=== PATIENT | male | born 1980 | race Two or more races ===

== ENCOUNTER 2017-05-01 10:41 | Emergency (ER) | payer OTHER, SELFPAY ==
[2017-05-01 10:43] VITALS: BP 159/100; PULSE 72; RESP 18; TEMP 36.3; O2SAT 99; BMI 33.5
--- NOTE | 2017-05-01 10:51 | CT_ITS ---
CT facial bones wo con COMPARISON: None HISTORY: Hit head on dresser last night now having headaches with some nausea and vomiting TECHNIQUE: Multiple axial scans of the maxillofacial bones and paranasal sinuses were obtained. Sagittal and coronal reformats were evaluated as well. FINDINGS: The mandible is intact and the zygomatic arches appear intact. The orbital rims and orbital floors appear intact. There is moderate mucoperiosteal thickening of the maxillary sinuses right side slightly worse than left. There is occlusion of the ostia of the O MU bilaterally secondary to inflammatory changes which involve the ethmoid sinuses. There is mucoperiosteal thickening of the frontal sinuses as well, sphenoid sinuses clear. There is mild bowing nasal septum from left to right. The nasal bone is intact. IMPRESSION: Findings of prominent chronic bilateral maxillary ethmoid and frontal sinusitis, no facial bone fracture identified
--- NOTE | 2017-05-01 10:51 | CT_ITS ---
CT head/brain wo con COMPARISON: None HISTORY: Hit head on dresser last night now complaining of headache TECHNIQUE: Multiple axial scans obtained from base skull to the vertex and were performed without IV contrast. FINDINGS: There is prominent mucoperiosteal thickening of the maxillary sinuses right side greater than left. There are inflammatory changes of the ethmoid sinuses. The mastoids are clear. The frontals and sphenoid sinus are clear. The ventricular system is normal. Is no ischemic infarct or bleed and there are no extra-axial fluid collections. The bony calvarium appears intact. IMPRESSION: Inflammatory changes of the maxillary sinuses and ethmoid sinuses likely chronic, otherwise essentially negative noncontrast CT scan of brain
--- NOTE | 2017-05-01 12:53 | HMH.EDGENADL ---
ED Disposition Clinical Impression: Head contusion, Migraine, Sinusitis Disposition: Home, Self-Care Condition on Discharge: Fair Instructions: Sinusitis Additional Instructions: 1- head inj instructions, and return for any changes 2- HOB 30 degree. 3- cold compresses 4- start augmentin 500 mg po bid x 2 weeks. 5- see dr kaiser Prescriptions: Amoxicillin [Amoxicillin 500mg Cap] 500 mg PO TID #30 cap Referrals: Anirudh Kaiser MD [Staff Physician] - - Critical Care Critical Care Time: No Attestation: On 05/01/17, the high probability of a clinically significant, sudden or life threatening deterioration of the following system(s) required my full and direct attention, intervention and personal management. The time I documented below is in addition to time spent performing reported procedures but includes the following listed in this critical care notation. Medical Decision Making - Dominguez Inquiry Pt receiving controlled substance: No Dominguez was queried for this patient: No Vital Signs: 05/01/17 10:43 Temperature 97.4 F L Temperature Source Oral Pulse Rate [Right Brachial] 72 Respiratory Rate 18 Blood Pressure [Right Arm] 159/100 Blood Pressure Mean [Right Arm] 119 Blood Pressure Source [Right Arm] Automatic Cuff Blood Pressure Position [Right Arm] Sitting 02 Sat by Pulse Oximetry 99 Oxygen Delivery Method Room Air - CT Data CT Scan: Head, Other Time Received: 12:[address] Reviewed: Yes: I have viewed the radiologist's interpretation Preliminary Findings: Abnormal Findings Narrative: IMPRESSION: Findings of prominent chronic bilateral maxillary ethmoid and frontal sinusitis, no facial bone fracture identified Medical Decision Narrative: I discussed with the patient his normal neurological and visual examination. Did have a negative CT scan except for sinusitis. Advising for antibiotics and a follow-up with the sinus doctor Dr. Kaiser. May help his migraine. He will receive a head injury instruction and he is to return for any new symptoms. The parents on the bedside verbalized understanding. General Adult HPI - General Chief complaint: PAIN Stated complaint: AO 04/30/17 hit head bad trujillo Time Seen by Provider: 05/01/17 13:00 Mode of Arrival: Ambulatory Limitations: No Limitations Description of Symptoms (Recalled from ER Triage Doc. by RN): Pt reports bend down and hit his head on his dresser, pt reports having pain in R eye area, feels like pressure in his head and has vomitted. - History of Present Illness HPI narrative: 36 years old male with a history of migraine. yesterday at 10:30 AM, he accidentally hit his head on a dresser, he denies alcohol use. He woke up this morning with a right sided headache followed by vomiting ?1. He took Excedrin migraine and was brought to the ED by his family. They agree with the story. Denies having neck pain chest pain abdominal pain or other extremity pain. He denies having visual disturbance. Onset (ago): hour(s) (10 hours) Location: head (Right supra frontal region. ) Radiation: non-radiation Severity: mild Severity scale (1-10): 1 Quality: dull Consistency: constant Relieving factors: medication Exacerbating factors: none Associated symptoms: nausea/vomiting Treatments prior to arrival: none - Related Data Previous Rx's Medication Instructions Recorded Amoxicillin [Amoxicillin 500mg 500 mg PO TID #30 cap 05/01/17 Cap] Allergies Allergy/AdvReac Type Severity Reaction Status Date / Time No Known Allergies Allergy Verified 05/01/17 10:50 [facility] History I have reviewed the patient's past medical history: Yes Medical History: Denies:: Diabetes Mellitus Type 1, Diabetes Mellitus Type 2 Amputation: No - Social History Alcohol Intake: never - Psychiatric History Expresses thoughts of harming self/others: None Suicide Plan Description: No Plan ROS Obtained: Yes All systems review
--- NOTE | 2017-05-01 12:56 | ED_ITS ---
ED Disposition Clinical Impression: Head contusion, Migraine, Sinusitis Disposition: Home, Self-Care Condition on Discharge: Fair Instructions: Sinusitis Additional Instructions: 1- head inj instructions, and return for any changes 2- HOB 30 degree. 3- cold compresses 4- start augmentin 500 mg po bid x 2 weeks. 5- see dr kaiser Prescriptions: Amoxicillin [Amoxicillin 500mg Cap] 500 mg PO TID #30 cap Referrals: Anirudh Kaiser MD [Staff Physician] - - Critical Care Critical Care Time: No Attestation: On 05/01/17, the high probability of a clinically significant, sudden or life threatening deterioration of the following system(s) required my full and direct attention, intervention and personal management. The time I documented below is in addition to time spent performing reported procedures but includes the following listed in this critical care notation. Medical Decision Making - Dominguez Inquiry Pt receiving controlled substance: No Dominguez was queried for this patient: No Vital Signs: 05/01/17 10:43 Temperature 97.4 F L Temperature Source Oral Pulse Rate [Right Brachial] 72 Respiratory Rate 18 Blood Pressure [Right Arm] 159/100 Blood Pressure Mean [Right Arm] 119 Blood Pressure Source [Right Arm] Automatic Cuff Blood Pressure Position [Right Arm] Sitting 02 Sat by Pulse Oximetry 99 Oxygen Delivery Method Room Air - CT Data CT Scan: Head, Other Time Received: 12:[address] Reviewed: Yes: I have viewed the radiologist's interpretation Preliminary Findings: Abnormal Findings Narrative: IMPRESSION: Findings of prominent chronic bilateral maxillary ethmoid and frontal sinusitis, no facial bone fracture identified Medical Decision Narrative: I discussed with the patient his normal neurological and visual examination. Did have a negative CT scan except for sinusitis. Advising for antibiotics and a follow-up with the sinus doctor Dr. Kaiser. May help his migraine. He will receive a head injury instruction and he is to return for any new symptoms. The parents on the bedside verbalized understanding. General Adult HPI - General Chief complaint: PAIN Stated complaint: AO 04/30/17 hit head bad trujillo Time Seen by Provider: 05/01/17 13:00 Mode of Arrival: Ambulatory Limitations: No Limitations Description of Symptoms (Recalled from ER Triage Doc. by RN): Pt reports bend down and hit his head on his dresser, pt reports having pain in R eye area, feels like pressure in his head and has vomitted. - History of Present Illness HPI narrative: 36 years old male with a history of migraine. yesterday at 10:30 AM, he accidentally hit his head on a dresser, he denies alcohol use. He woke up this morning with a right sided headache followed by vomiting ?1. He took Excedrin migraine and was brought to the ED by his family. They agree with the story. Denies having neck pain chest pain abdominal pain or other extremity pain. He denies having visual disturbance. Onset (ago): hour(s) (10 hours) Location: head (Right supra frontal region. ) Radiation: non-radiation Severity: mild Severity scale (1-10): 1 Quality: dull Consistency: constant Relieving factors: medication Exacerbating factors: none Associated symptoms: nausea/vomiting Treatments prior to arrival: none - Related Data Previous Rx's Medication Instructions Recorded
[2017-05-01 13:07] VITALS: BP 132/75; PULSE 81; RESP 18; TEMP 36.1; O2SAT 98
== END 2017-05-01 13:07 | disposition home or self-care (01) ==
PROVIDERS: Emergency Provider Emergency Medicine
DX: S00.93XA Contusion of unspecified part of head, initial encounter (principal); G43.909 Migraine, unspecified, not intractable, without status migrainosus; J32.9 Chronic sinusitis, unspecified; W22.03XA Walked into furniture, initial encounter; Y92.019 Unspecified place in single-family (private) house as the place of occurrence of the external cause
CPT/HCPCS: 70450; 70486; 99282

== ENCOUNTER → 2020-12-18 13:36 | Outpatient (CLI) | payer OTHER, SELFPAY ==
--- NOTE | 2020-12-18 | CA_ITS ---
APPROVED REPORT EXAM: Comprehensive 2D, Doppler, and color-flow Echocardiogram Risk Mgr: Katya Ren RT(R) Ht: 5 ft 4 in Wt: 191lbs BSA: 1.92 BP: 122/82 mmHg Indications: CP, Palpitations, HTN, SOB, HOLLAND, obesity, chest pain with deep breath. 2D Dimensions LVOT 2.12 cm (M/F) 1.5-2.5 M-Mode Dimensions RVDd 3.15 cm (0.9-2.6) LA Diam 3.52 cm (1.9-4.0) LVDd 3.47 cm (3.5-5.7) Ao Diam 2.76 cm (2.0-3.7) LVDs 2.61 cm (3.5-5.7) IVSd 0.86 cm (0.6-1.1) PWd 0.89 cm (0.6-1.1) EF (Teich) 50.20% FS 24.80% EDV (Teich) 49.80 mL ESV (Teich) 24.80 mL LV Diastology E Decel Time 203.00 (160-240 msec) E/A Ratio 1.4 MED E' 9.40 (< 7 cm/sec) E'/MED E' Ratio 9.91 (>14) LAT E' 12.10 (<10 cm/sec) E/LAT E' Ratio 7.70 (>14) Mitral Valve MV E Max Leandro. 93.00 (40-130 cm/s) MV A Velocity 66.00 (40-130 cm/s) E/A Ratio 1.41 MV Decel. Time 203.00 (160-240 ms) MV PHT 60.00 ms Tricuspid Valve TR P. Velocity 219.00 cm/s RAP Estimate 10.00 mmHg RVSP 29.10 mmHg Left Ventricle Left atrium is normal size, left ventricle is normal size, left ventricle wall thickness is upper limit of normal, there is preserved left ventricular systolic function, visually estimated ejection fraction 55% with no regional wall motion abnormality, diastolic parameters are within normal range. Right Ventricle Right atrium and right ventricle are mildly enlarged with normal contractility. Aortic Valve Aortic valve is minimally thickened and fibrosed, there is no aortic stenosis or aortic insufficiency. Mitral Valve Mitral valve is grossly normal, there is trace mitral regurgitation. Tricuspid Valve Tricuspid grossly normal, there is trace tricuspid regurgitation, calculated right ventricular systolic pressure is 29 mmHg. Pulmonic Valve Pulmonic valve is poorly visualized. There is mild pulmonic insufficiency. Great Vessels Aortic root is normal size. Inferior vena cava is normal size with normal inspiratory collapse. Pericardium No significant pericardial effusion noted. Conclusion 1. Normal left ventricular size, preserved left ventricular systolic function, visually estimated ejection fraction 55% with no regional wall motion abnormality, diastolic parameters are within normal range. 2. Mildly enlarged right ventricle with normal contractility. 3. Trace mitral and tricuspid regurgitation. Calculated right ventricular systolic pressure 29 mmHg. 4. No significant pericardial effusion noted. 5. Inferior vena cava is normal size with normal inspiratory collapse. Electronically signed by : Oswald Santana MD 12/19/2020 16:27:36
== END ==
PROVIDERS: PCP Nurse Practitioner Family; Visit Provider Nurse Practitioner Family
DX: R07.9 Chest pain, unspecified (principal); I10 Essential (primary) hypertension
CPT/HCPCS: 93306

== ENCOUNTER 2023-05-04 14:35 | Outpatient (CLI) | payer SELFPAY ==
--- NOTE | 2023-05-04 14:42 | US_ITS ---
FINAL REPORT CLINICAL HISTORY: URINARY URGENCY FINDINGS: Limited sonographic images of the bladder were obtained. Bladder volume is 306 mL. Postvoid residual is 166 mL. There is a 16 mm soft tissue mass at the base of the bladder. It is uncertain if this represents a primary bladder mass or portion of the prostate extending to the base of the bladder. IMPRESSION: Large postvoid residual. Soft tissue mass as detailed above. Prostate MRI may be helpful. Reviewed, Interpreted and Dictated by Christopher Sylvester III, MD Transcribed by Alison Rutherford Authenticated and . [facility]
== END 2023-05-04 23:59 ==
LOC: RAD 14:35
PROVIDERS: PCP Nurse Practitioner Family; Visit Provider Nurse Practitioner Family
DX: R39.15 Urgency of urination (principal)
CPT/HCPCS: 76857

== ENCOUNTER 2023-05-20 17:35 | Outpatient (CLI) | payer SELFPAY ==
--- NOTE | 2023-05-20 17:43 | MR_ITS ---
FINAL REPORT CLINICAL HISTORY: DISORDER OF PROSTATE 18 ML PROHACNE FINDINGS: Multiplanar MR imaging of the pelvis was performed without and with contrast. The bony structures are intact without evidence of fracture or bone marrow edema. No bony mass is identified. The hips have an unremarkable appearance. The musculature is intact. No adenopathy or abnormal fluid collection is seen. There is a small left inguinal hernia containing fat only. A 15 mm soft tissue nodule is seen at the bladder base which projects into the base of the urinary bladder. This has signal characteristics similar to the transition zone, best visualized on the sagittal images, and is favored to represent a BPH nodule that indents the bladder base. The peripheral zone has an unremarkable appearance without evidence of nodule. On the postcontrast images, the central portion of the transition zone and the nodule shows contrast-enhancement, as a nonspecific finding. IMPRESSION: 15 mm soft tissue nodule at the bladder base as described. Since this has similar signal characteristics as the transition zone, a BPH nodule is favored over other neoplasm. This could be further evaluated with follow-up MRI in 6 months to evaluate for stability. Urologic consultation may also be helpful. Authenticated and ERN
[2023-05-20] MEDS: GADOTERIDOL INJ 17ML SYRINGE 18 ML IV (18:51)
[2023-05-20] MEDS: SODIUM CHLORIDE 0.9% 10ML SYR (RAD ONLY) 10 ML IV (18:51)
== END 2023-05-20 23:59 ==
PROVIDERS: PCP Nurse Practitioner Family; Visit Provider Nurse Practitioner Family
DX: N42.9 Disorder of prostate, unspecified (principal)
CPT/HCPCS: 72197; A9576

== ENCOUNTER → 2023-09-27 07:10 | Outpatient (CLI) | payer SELFPAY | LOC: SL 07:11 | PROVIDERS: PCP Nurse Practitioner Family; Visit Provider Specialist | DX: G47.33 Obstructive sleep apnea (adult) (pediatric) (principal); G47.36 Sleep related hypoventilation in conditions classified elsewhere | CPT/HCPCS: G0399 ==